=== PATIENT | female | born 1985 | race Caucasian/White ===

== ENCOUNTER 2017-02-18 10:21 | Inpatient (IN) | payer MEDICAID ==
[~2017-02-18] VITALS: Ht 157.5 cm; Wt 80.7 kg
[~2017-02-18 10:21] MED LIST: SYNT25TA PO; SYNT75TA PO
[2017-02-18 10:44] VITALS: BP 127/78; PULSE 99
[2017-02-18 10:45] VITALS: RESP 18; TEMP 97.8
--- NOTE | 2017-02-18 11:19 | PD ---
History of Present Illness Date Seen: Feb 18, 2017 History of Present Illness Patient is 32-year-old white female at 40 weeks presents combining of a pink discharge. No keo blood per vagina. She has no contractions and a pains , baby is active, then the leakage of fluid, and heart rate tracing is reactive with no regular contractions seen. the patient has not had an ultrasound this and i explained to her that if she's had bleeding or presents complaining of bleeding then we need to identify with the placenta is located. bedside ultrasound was done which shows a fundal placenta. the patient was checked by the nurse she would not let a man check her and she was 3 cm 60% and posterior. It was explained to patient that if she is 3 cm dilated and somewhat effaced and she is going to have a pinkish mucousy discharge from now on. Patient was discharged home to observe the motion and observe for any prob federica related to leakage bleeding or pain Jonah Ramirez II, MD Feb 18, 2017 11:19
--- NOTE | 2017-02-18 11:30 | PD ---
HPI Chief Complaint [place] discharge, spotting Date Seen: Feb 18, 2017 Time Seen: 11:00 Travel History International Travel<30 Days: No Contact w/Intl Traveler<30Days: No Known Affected Area: No History of Present Illness HPI Patient is a 32-year-old at 40 weeks and 0 days and presents with pink discharge, spotting. Patient reports that she noticed this pink discharge after having sex Saturday night. She denied any leakage of fluid. She denies any regular contractions. She endorses movement. She denies any abdominal trauma. She reports that she is never had an ultrasound. Of note, patient follows with Dr. Antonio and was noted to have 3 cm of dilation at her last cervical check. Estimated deliveries 08/21/16 by LMP. Para: 6 : 8 History Past Medical History Narrative Medical Patient has a history of hypothyroidism and takes Synthroid Obstetric History Obstetric History Patient is with a history of 6 uncomplicated vaginal deliveries. Past Surgical History Surgical History: No Previous Surgery Family History Family History: Negative Social History Narrative Social History Patient lives at home with her and 6 children. She feels safe at home. Alcohol Use: No Tobacco Use: No Substance Abuse: No Allergies-Medications (Allergen,Severity, Reaction): Coded Allergies: Codeine (Verified Allergy, Mild, Hives, 04/22/15) Home Meds Reported Medications Synthroid 75 mcg 75 Mcg Tab0.75 Mg PO sat/sun/sat/11/14/13 Synthroid 25 mcg 25 Mcg Tab0.5 Mg PO sat//sat11/14/13 Review of Systems General / Constitutional: No: Fever, Chills Genitourinary: No: Dysuria Musculoskeletal: Edema, No: Cramping, Pain Physical Exam Blood pressure 127/78, heart rate 99 Narrative GENERAL: Well-nourished, well-developed patient. SKIN: Warm and dry. HEAD: Normocephalic and atraumatic. EYES: No scleral icterus. No injection or drainage. ENT: No nasal drainage noted. Mucous membranes pink. Airway patent. NECK: Supple, trachea midline. No JVD. CARDIOVASCULAR: Regular rate and rhythm without murmurs, gallops, or rubs. RESPIRATORY: Breath sounds equal bilaterally. No accessory muscle use. BREASTS: Bilateral exam showed no masses , no retractions, no nipple discharge. ABDOMEN/GI: Abdomen soft, non-tender, bowel sounds present, no rebound, no guarding Gravid to 40 weeks size GENITOURINARY: Exam by nurse External Genitalia: intact and normal in appearance Dilatation: 3 cm Effacement: 60% Station: -3 Presentation: Vertex Membranes: intact Uterine Contractions: none FHT's: Category: Category 1 Baseline: 140 Reactive: reactive Variability: Moderate Decels: None EXTREMITIES: No cyanosis or edema. BACK: Nontender without obvious deformity. No CVA tenderness. NEUROLOGICAL: Awake and alert. Motor and sensory grossly within normal limits. Five out of 5 muscle strength in all muscle groups. Normal speech. Data Data Vital Signs Reviewed: Yes Orders Vital Signs (Adult) .ON ADMISSION (02/18/17 11:00) ^ Labor Status (02/18/17 11:00) ^ Non Stress Test (02/18/17 11:00) ^ Hydration (02/18/17 11:00) MDM Plan Patient is a 32-year-old at 40 weeks and 0 days and presents with pink discharge, spotting. 1) spotting, rule out vaginal bleeding Bedside ultrasound showed placenta located superiorly. Ruled out placenta previa Cervical exam consistent with previous cervical exam showing 3 cm of dilation. Thus, one would expect spotting and pink discharge. However, given lack of contractions and significant cervical change, patient is unlikely to be in active labor. Monitor vital signs Monitor tocometry Monitor heart rate with nonstress test Encourage by mouth hydration Discussed with Dr. Ramirez Diagnosis Diagnosis: Primary Impression: Spotting affecting in third trimester Additional Impression: Ruled Out: Placenta previa Disposition: 01 DISCHARGE HOME Condition: Good Shine Medellin MD R1 Feb 18, 2017 11:30
[2017-02-19] VITALS (21 sets, daily range): BP systolic 105–135; BP diastolic 57–93; PULSE 67–91; RESP 15–18; TEMP 97.7–98.6
[2017-02-19] MEDS ORDERED: MEASLES, MUMPS, RUBELLA VACCINE 0.5 ML VIAL SQ ONE (16:00)
[2017-02-19] MEDS ORDERED: DIPHTH/TETANUS/ACEL PERTUSSIS (BOOSTER) 0.5 ML VIAL/PFS IM ONE (16:00)
[2017-02-19] MEDS ORDERED: synthroid (17:16)
[2017-02-19] MEDS ORDERED: NS 1000 ML IV PRN (17:30)
[2017-02-19] MEDS ORDERED: MINERAL OIL 10 ML VIAL TOPICAL PRN (17:30)
[2017-02-19] MEDS ORDERED: LIDOCAINE HCL 1% 50 ML VIAL I-DERMAL PRN (17:30)
[2017-02-19] MEDS ORDERED: LIDOCAINE HCL 1% 50 ML VIAL INFIL PRN (17:30)
[2017-02-19] MEDS ORDERED: LACTATED RINGER'S 1000 ML BOLUS IV PRN (17:30)
[2017-02-19] MEDS ORDERED: OXYTOCIN 30 UNITS 500ML PREMIX IV ONE (17:30)
[2017-02-19] MEDS ORDERED: NS 500 ML BOLUS IV PRN (17:30)
[2017-02-19] MEDS ORDERED: CITRIC ACID-SODIUM CITRATE LIQ 30 ML UDC PO SCH (17:30)
[2017-02-19 17:36] LABS: AUTOMATED NEUTROPHIL # 8.2 TH/MM3 (1.8-7.7); BASOPHIL % 0.3 % (0.0-2.0); EOSINOPHIL # 0.2 TH/MM3 (0-0.4); EOSINOPHIL % 1.8 % (0.0-4.0); HEMATOCRIT 31.6 % (35.0-46.0); HEMO FLAGS DIFF FINAL; LYMPH % 16.5 % (9.0-44.0); LYMPHOCYTE # 1.9 TH/MM3 (1.0-4.8); MEAN CELL VOLUME 74.2 FL (80.0-100.0); MEAN CORPUSCULAR HEMOGLOBIN 24.3 PG (27.0-34.0); MEAN CORPUSCULAR HGB CONC 32.7 % (32.0-36.0); MONO % 9.9 % (0.0-8.0); NEUT % 71.5 % (16.0-70.0); PLATELET COUNT 158 TH/MM3 (150-450); RED BLOOD COUNT 4.26 MIL/MM3 (4.00-5.30); RED CELL DISTRIBUTION WIDTH 16.2 % (11.6-17.2); WHITE BLOOD COUNT 11.4 TH/MM3 (4.0-11.0)
[2017-02-19] MEDS: LACTATED RINGER'S 1000 ML IV SCH ×2 (17:39→20:50)
[2017-02-19] MEDS ORDERED: OXYTOCIN 30 UNITS/NS 500ML PREMIX IV SCH (17:45)
[2017-02-19] MEDS ORDERED: PENICILLIN G POT 5,000,000 UNITS/NS 100 ML (Mini-Bag Plus) IV ONE ×2 (18:00)
[2017-02-19 18:08] LABS: BLOOD, URINE SMALL (NEG); CALCIUM OXALATE CRYSTALS,URINE MANY /hpf; COMMENT (UR) CULT NOT INDICATED; CULTURE IF INDICATED CULT NOT INDICATED; GLUCOSE,URINE TRACE mg/dL (NEG); KETONE, URINE NEG (NEG); MUCUS URINE MOD /lpf (OCC); NITRITE,URINE NEG (NEG); SQUAMOUS EPITHELIAL CELL URINE 7 /hpf (0-5); URINE COLOR YELLOW (YELLW/STRAW)
--- NOTE | 2017-02-19 18:13 | MH ---
cc: DENICE LOZANO DATE OF ADMISSION: 02/19/2017 INDICATIONS: 40-2/7 week intrauterine at 4+ cm with a positive fern, Group B strep positive. HISTORY OF PRESENT CONDITION: The patient is a 32 year-old marrked, grand multip, 7, para 6, with LMP 10/16 and EDC 02/17, currently at 40+ weeks. She has had all her babies naturally and they have ranged from 8 pounds 13 ounces to 9 pounds 8 ounces. She has had no labor, gestational diabetes or hypertensive disease. She began her care at 16 weeks. Her weight gain has been a total of 30 pounds. Her blood type is A positive, hemoglobin 11.6, Pap smear normal, immune to [place] measles and chicken pox. Cultures all negative. Thyroid studies were completely normal. Glucola was 129 and Group B strep was positive. She does have an ALLERGY TO AMOXICILLIN. I need to see if she can take her penicillin G. SOCIAL HISTORY: She does not smoke, drink or use illicit drugs. FAMILY HISTORY: Noncontributory. PHYSICAL EXAMINATION: She is a well-developed, well-nourished female, who is concerned today as she began leaking at noon. VITAL SIGNS: Her blood pressure was 120, weight was 179. She was having 1+ protein. LUNGS: Clear. HEART: Rate and rhythm are regular. Fundus at term. Estimated weight is 9 pounds. Cervix was 4 to 5 cm, 80% with a residual bag but a fern was definitely positive. IMPRESSION: Term intrauterine in a grand multip with Group B strep and dilation. She has been sent to Labor and Delivery to start her penicillin G, if appropriate. Otherwise we will give her clindamycin and she is to get induced as she has ruptured her membranes with anticipation of a vaginal delivery. Denice Lozano MD PPC/JOJO /5:20 PM /5:36 PM
--- NOTE | 2017-02-19 18:17 | PD.LABORPN ---
Subjective Subjective H & P dictated 31 yo at 40 + weeks with cervix at 5 cm and fern + with complaint of slow leak since noon. GBS + since admission forewaters broken feeling well Objective Vital Signs Vital Signs Date Time Temp Pulse Resp B/P Pulse Ox O2 Delivery O2 Flow Rate FiO2 02/19/17 17:50 90 135/92 02/19/17 16:22 98.6 15 02/19/17 16:21 91 126/69 Objective EFW 9 pounds\ pelvis clincially adequate Assessment/Plan Assessment and Plan anticipate Ekta Lockhart MD Feb 19, 2017 18:17
[2017-02-19] MEDS ORDERED: fentaNYL 2MCG-BUPIV 0.125% INJ 100 ML ONE (18:41)
[2017-02-19] MEDS ORDERED: ePHEDrine/NS 25 MG/5 ML SYR ONE (19:10)
[2017-02-19] MEDS ORDERED: DO NOT ADMINISTER ANTICOAGULANTS PRN (20:15)
[2017-02-19] MEDS ORDERED: fentaNYL 2MCG-BUPIV 0.125% 100 ML EPIDURAL SCH (20:15)
[2017-02-19] MEDS ORDERED: NO SYSTEM NARCOTICS PRN (20:15)
[2017-02-19] MEDS ORDERED: ePHEDrine/NS 25 MG/5 ML SYR IV PRN (20:15)
--- NOTE | 2017-02-19 21:14 | PD.OB.DELI ---
Anesthesia: Epidural Episiotomy: None Vaginal Delivery: Normal Presentation: Occiput anterior Nuchal Cord: x2 Delayed cord clamping (45 sec): Yes Shoulder Dystocia: Suprapubic pressure given, Jeff maneuver done Infant: Male One Minute : 8 Five Minute : 9 Weight: 9 Placenta: Spontaneous delivery Laceration: No lacerations (mild shoulder dystocia) Ekta Anguiano MD Feb 19, 2017 21:14
[2017-02-19] MEDS ORDERED: ONDANSETRON ODT 4 MG TAB PO PRN (21:15)
[2017-02-19] MEDS ORDERED: DOCUSATE SODIUM 50 MG/SENNA 8.6 MG TAB PO PRN (21:15)
[2017-02-19] MEDS ORDERED: SODIUM CHLORIDE 0.9% FLUSH 10 ML FLUSH IV FLUSH PRN (21:15)
[2017-02-19] MEDS ORDERED: ALUMINUM/MAGNESIUM/SIMETH 30 ML CUP PO PRN (21:15)
[2017-02-19] MEDS ORDERED: ZOLPIDEM TARTRATE 5 MG TAB PO PRN (21:15)
[2017-02-19] MEDS ORDERED: BENZOCAINE 20% TOPICAL SPRAY 60 ML CAN TOPICAL PRN (21:15)
[2017-02-19] MEDS ORDERED: WITCH HAZEL 50%/GLYCERIN 12.5% 40 PAD JAR TOPICAL PRN (21:15)
[2017-02-20] MEDS: IBUPROFEN 600 MG TAB PO PRN ×4 (01:57→22:57)
[2017-02-20 08:02] VITALS: BP 112/75; PULSE 80; RESP 16; TEMP 97.9
--- NOTE | 2017-02-20 08:24 | HHI.OB ---
Subjective Post Day: 1 Objective Vitals/I&O Vital Signs Date Time Temp Pulse Resp B/P Pulse Ox O2 Delivery O2 Flow Rate FiO2 02/19/17 23:50 98.0 72 18 105/61 02/19/17 22:00 67 115/84 02/19/17 21:45 18 02/19/17 21:30 73 107/70 02/19/17 21:14 18 02/19/17 21:00 77 108/62 02/19/17 20:30 79 124/69 02/19/17 20:00 82 115/57 02/19/17 19:35 97.7 18 02/19/17 19:30 88 119/65 02/19/17 19:25 73 02/19/17 19:25 80 134/73 02/19/17 19:20 83 02/19/17 19:20 85 121/78 02/19/17 19:19 87 130/80 02/19/17 19:00 80 135/82 02/19/17 18:41 80 126/93 02/19/17 18:13 16 02/19/17 18:12 84 132/78 02/19/17 18:00 16 02/19/17 17:50 90 135/92 02/19/17 16:22 98.6 15 02/19/17 16:21 91 126/69 Objective Remarks GENERAL: Well-nourished, well-developed patient. CARDIOVASCULAR: Regular rate and rhythm without murmurs, gallops, or rubs. RESPIRATORY: Breath sounds equal bilaterally. No accessory muscle use. ABDOMEN/GI: Abdomen soft, non-tender. Fundus: Firm, non-tender at umbilicus. GENITOURINARY: Light to moderate bleeding. EXTREMITIES: No cyanosis or edema, non-tender, without signs of DVT. Medications and IVs Current Medications Medications (Trade) Dose Ordered Sig/Heidi Route Start Time Stop Time Status Last Admin Lactated Ringer's 1,000 ml @ 125 mls/hr Q8H IV 02/19/17 17:30 02/19/17 20:50 Lactated Ringer's 1,000 ml @ 3,000 mls/hr BOLUS PRN IV 02/19/17 17:30 Sodium Chloride 500 ml @ 1,000 mls/hr BOLUS PRN IV 02/19/17 17:30 (NS 1000 ml Inj) 1,000 ml @ 100 mls/hr Q10H PRN IV 02/19/17 17:30 (fentaNYL INJ) 50 mcg Q1H PRN IV PUSH 02/19/17 17:30 Fentanyl Citrate 100 mcg 100 mcg Q1H PRN IV PUSH 02/19/17 17:30 (Pfizerpen-G Inj/ NS Inj) 100 ml @ 200 mls/hr Q4H IV 02/20/17 22:00 02/19/17 21:19 Mineral Oil 10 ml 10 ml UNSCH PRN TOPICAL 02/19/17 17:30 (Pitocin 30 Units-NS 500 ml Premix) 500 ml @ 0 mls/hr TITRATE IV 02/19/17 17:45 02/19/17 18:22 Miscellaneous Information No systemic narcotics to be given except... UNSCH PRN .XX 02/19/17 20:15 02/20/17 20:14 Miscellaneous Information DO NOT ADMINISTER ANY ANTICOAGUL... UNSCH PRN .XX 02/19/17 20:15 02/20/17 20:14 (fentaNYL 2MCG-BUPIV 0.125% INJ) 100 ml @ 0 mls/hr TITRATE EPIDURAL 02/19/17 20:15 02/19/17 20:17 (ePHEDrine/NS 25 MG/5 ML SYR) 10 mg UNSCH PRN IV 02/19/17 20:15 02/20/17 20:14 (NS Flush) 2 ml BID IV FLUSH 02/20/17 09:00 (NS Flush) 2 ml UNSCH PRN IV FLUSH 02/19/17 21:15 (Tylenol) 650 mg Q4H PRN PO 02/19/17 21:15 (Motrin) 600 mg Q6H PRN PO 02/19/17 21:15 02/20/17 08:09 (Americaine 20% Top Spr) 1 spray Q4H PRN TOPICAL 02/19/17 21:15 (Tucks Pads) 1 applic QID PRN TOPICAL 02/19/17 21:15 (Anna Marie-Colace) 2 tab Q12H PRN PO 02/19/17 21:15 (Ambien) 5 mg HS PRN PO 02/19/17 21:15 (Mag-Al Plus Susp Liq) 15 ml Q8H PRN PO 02/19/17 21:15 (Zofran Odt) 4 mg Q6H PRN PO 02/19/17 21:15 Assessment/Plan Problem List: (1) (spontaneous vaginal delivery) Assessment and Plan PPD#1 doing well infant in NICU for respiratory distress following delivery anticipate d/c to home tmrw Discharge Planning tmrw Elli Vega MD Feb 20, 2017 08:24
[2017-02-20] MEDS ORDERED: SODIUM CHLORIDE 0.9% FLUSH 10 ML FLUSH IV FLUSH SCH (09:00)
[2017-02-20] MEDS: ACETAMINOPHEN 325 MG TAB PO PRN ×2 (15:39→22:58)
[2017-02-20 19:13] VITALS: BP 114/69; PULSE 85; RESP 14; TEMP 98.2
[2017-02-20] MEDS ORDERED: PENICILLIN G POT 2,500,000 UNITS/NS 100 ML IV SCH ×2 (22:00)
[2017-02-20] MEDS ORDERED: oxyCODONE/ACETAMINOPHEN 5 MG/325 MG TAB PO PRN ×2 (23:00)
[2017-02-21] MEDS: IBUPROFEN 600 MG TAB PO PRN (05:44)
[2017-02-21] MEDS: ACETAMINOPHEN 325 MG TAB PO PRN (05:44)
[2017-02-21 08:30] VITALS: BP 104/54; PULSE 74; RESP 18; TEMP 98.3
--- NOTE | 2017-02-21 11:20 | HHI.OB ---
Objective Vitals/I&O Vital Signs Date Time Temp Pulse Resp B/P Pulse Ox O2 Delivery O2 Flow Rate FiO2 02/21/17 08:30 98.3 74 18 104/54 02/20/17 19:13 98.2 85 14 02/20/17 19:13 114/69 Objective Remarks GENERAL: Well-nourished, well-developed patient. CARDIOVASCULAR: Regular rate and rhythm without murmurs, gallops, or rubs. RESPIRATORY: Breath sounds equal bilaterally. No accessory muscle use. ABDOMEN/GI: Abdomen soft, non-tender. Fundus: Firm, non-tender at umbilicus. GENITOURINARY: Light to moderate bleeding. EXTREMITIES: No cyanosis or edema, non-tender, without signs of DVT. Medications and IVs Current Medications Medications (Trade) Dose Ordered Sig/Heidi Route Start Time Stop Time Status Last Admin Lactated Ringer's 1,000 ml @ 125 mls/hr Q8H IV 02/19/17 17:30 02/19/17 20:50 Lactated Ringer's 1,000 ml @ 3,000 mls/hr BOLUS PRN IV 02/19/17 17:30 Sodium Chloride 500 ml @ 1,000 mls/hr BOLUS PRN IV 02/19/17 17:30 (NS 1000 ml Inj) 1,000 ml @ 100 mls/hr Q10H PRN IV 02/19/17 17:30 (fentaNYL INJ) 50 mcg Q1H PRN IV PUSH 02/19/17 17:30 Fentanyl Citrate 100 mcg 100 mcg Q1H PRN IV PUSH 02/19/17 17:30 (Pfizerpen-G Inj/ NS Inj) 100 ml @ 200 mls/hr Q4H IV 02/20/17 22:00 02/19/17 21:19 Mineral Oil 10 ml 10 ml UNSCH PRN TOPICAL 02/19/17 17:30 Oxytocin 500 ml @ 0 mls/hr TITRATE IV 02/19/17 17:45 02/19/17 18:22 (fentaNYL 2MCG-BUPIV 0.125% INJ) 100 ml @ 0 mls/hr TITRATE EPIDURAL 02/19/17 20:15 02/19/17 20:17 (NS Flush) 2 ml BID IV FLUSH 02/20/17 09:00 (NS Flush) 2 ml UNSCH PRN IV FLUSH 02/19/17 21:15 (Tylenol) 650 mg Q4H PRN PO 02/19/17 21:15 02/21/17 05:44 (Motrin) 600 mg Q6H PRN PO 02/19/17 21:15 02/21/17 05:44 (Americaine 20% Top Spr) 1 spray Q4H PRN TOPICAL 02/19/17 21:15 (Tucks Pads) 1 applic QID PRN TOPICAL 02/19/17 21:15 (Anna Marie-Colace) 2 tab Q12H PRN PO 02/19/17 21:15 (Ambien) 5 mg HS PRN PO 02/19/17 21:15 (Mag-Al Plus Susp Liq) 15 ml Q8H PRN PO 02/19/17 21:15 (Zofran Odt) 4 mg Q6H PRN PO 02/19/17 21:15 (Percocet 5-325 Mg) 1 tab Q4H PRN PO 02/20/17 23:00 (Percocet 5-325 Mg) 2 tab Q4H PRN PO 02/20/17 23:00 Assessment/Plan Problem List: (1) (spontaneous vaginal delivery) Assessment and Plan PPD#1 doing well in NICU for respiratory distress following delivery anticipate d/c to home tmrw Discharge Planning tmrw Ekta Anguiano MD Feb 21, 2017 11:20
[2017-02-21] MEDS ORDERED: IBUP-232 PO (11:21)
--- NOTE | 2017-02-21 11:22 | HHI.DCPOC ---
Discharge Care Plan Report Symptoms to Your Doctor -Temperature above 100.5 degrees -Redness, of incision or excessive or foul smelling drainage -Unusual pain or calf pain -Increased vaginal bleeding -Painful or difficulty urinating -Feelings of extreme sadness or anxiety after 2 weeks Goals to Promote Your Health * To prevent worsening of your condition and complications * To maintain your health at the optimal level Directions to Meet Your Goals Take your medications as prescribed Follow your dietary instruction Follow activity as directed Ensure plenty of rest for recovery Drink fluids for hydration Keep your appointments as scheduled Take your immunizations and boosters as scheduled If your symptoms worsen call your PCP, if no PCP go to Urgent Care Center or Emergency Room Smoking is Dangerous to Your Health. Avoid second hand smoke Call the 24-hour crisis hotline for domestic abuse at Ekta Anguiano MD Feb 21, 2017 11:22
== END 2017-02-21 13:28 | disposition home or self-care (01) | DRG 775 ==
LOC: HOBED 10:21 → H2EB 02-19 16:08 → H1EA 02-19 23:23
PROVIDERS: ADMIT Obstetrics & Gynecology; ATTEND Obstetrics & Gynecology
PROC: 10E0XZZ Delivery of Products of Conception, External Approach (ICD-10-PCS; principal; 2017-02-19)
DX: O99.824 Streptococcus B carrier state complicating childbirth (principal); E03.9 Hypothyroidism, unspecified; O69.81X0 Labor and delivery complicated by cord around neck, without compression, not applicable or unspecified; Z37.0 Single live birth; Z3A.40 40 weeks gestation of pregnancy; O66.0 Obstructed labor due to shoulder dystocia; O99.284 Endocrine, nutritional and metabolic diseases complicating childbirth
CPT/HCPCS: 59025; 81001; 85025; 90715; J2540; J2590; J7120